=== PATIENT | female | born 1980 | race Hispanic/Latino ===

== ENCOUNTER 2024-02-14 16:30 | Emergency (ER) | payer OTHER ==
[~2024-02-14] VITALS: Ht 154.9 cm; Wt 72.6 kg
[2024-02-14 16:30] VITALS: PULSE 89; RESP 18; TEMP 98.1
[2024-02-14] MEDS ORDERED: IBUPROFEN200 MG PO (17:08)
[2024-02-14] MEDS ORDERED: TYLENOL325 MG PO (17:08)
[2024-02-14 18:22] VITALS: BP 137/84; PULSE 64; RESP 18; TEMP 98.4; O2SAT 99
== END 2024-02-14 18:00 | disposition home or self-care (01) ==
LOC: FSED 16:36
DX: M25.511 Pain in right shoulder (principal); R20.0 Anesthesia of skin; V53.5XXA Driver of pick-up truck or van injured in collision with car, pick-up truck or van in traffic accident, initial encounter; Y92.488 Other paved roadways as the place of occurrence of the external cause
CPT/HCPCS: 72040; 99283

== ENCOUNTER → 2025-02-04 | Outpatient (REF) | payer OTHER ==
[~2025-02-04] MED LIST: IBUPROFEN200 MG PO; METFORMIN HCL500 MG PO; TYLENOL325 MG PO
== END ==
LOC: RAD 10:56 → EDSTATUS 02-07 10:00
PROVIDERS: ATTEND Internal Medicine Gastroenterology
DX: Z01.818 Encounter for other preprocedural examination (principal); Z12.11 Encounter for screening for malignant neoplasm of colon
CPT/HCPCS: 93005